=== PATIENT | male | born 1950 | race Caucasian/White ===

== ENCOUNTER 2019-02-25 05:40 | Observation (INO) | payer OTHER, MEDICARE ==
[2019-02-23 16:10] LABS: BASOPHILS % 0.5 % (0.0-1.0); EOSINOPHILS # (AUTO) 0.2 (0.0-0.4); EOSINOPHILS % 1.7 % (0.0-6.0); HEMOGLOBIN 16.2 g/dL (14.0-18.0); LYMPHOCYTES # (AUTO) 2.2 (1.0-3.2); LYMPHOCYTES % 24.6 % (18.0-39.1); MEAN CORPUSCULAR HEMOGLOBIN 31.7 pg (28-32); MEAN CORPUSCULAR HGB CONC 35.2 g/dL (31-35); MONOCYTES # (AUTO) 1.2 (0.2-0.8); MONOCYTES % 13.5 % (4.4-11.3); NEUTROPHILS # (AUTO) 5.2 (2.1-6.9); NEUTROPHILS % 59.2 % (38.7-80.0); PLATELET COUNT 252 x10e3/uL (140-360); RED BLOOD COUNT 5.11 x10e6/uL (4.3-5.7); RED CELL DISTRIBUTION WIDTH 12.4 % (11.7-14.4)
[2019-02-23 16:24] LABS: INR 0.87; PARTIAL THROMBOPLASTIN TIME 31.7 seconds (23.8-35.5); PROTHROMBIN TIME 12.3 seconds (11.9-14.5)
[2019-02-23 16:31] LABS: ANION GAP 16.8 mmol/L (8-16); BLOOD UREA NITROGEN 18 mg/dL (7-26); BUN/CREATININE RATIO 17 (6-25); CALCIUM 9.3 mg/dL (8.4-10.2); CARBON DIOXIDE 24 mmol/L (22-29); CHLORIDE 100 mmol/L (98-107); CREATININE, SERUM 1.07 mg/dL (0.72-1.25); EST GLOMERULAR FILTRATION RATE > 60 ML/MIN (60-); GLUCOSE 96 mg/dL (74-118); POTASSIUM 3.8 mmol/L (3.5-5.1); SODIUM 137 mmol/L (136-145)
--- NOTE | 2019-02-23 17:08 | Diagnostic Imaging Report ---
EXAMINATION: CHEST 2 VIEWS INDICATION: Pre-operative COMPARISON: None FINDINGS: LINES/TUBES:None LUNGS:The lungs are well-inflated. No focal consolidation or pulmonary edema. PLEURA:No pleural effusion or pneumothorax. MEDIASTINUM:The cardiomediastinal silhouette appears normal in size and shape. Postoperative findings of prior CABG. BONES/SOFT TISSUES:No acute osseous injury. Sternotomy wires in place. ABDOMEN:No free air under the diaphragm. IMPRESSION: No focal pneumonia or pulmonary edema. Signed by: Kali Lam MD on 02/23/2019 5:05 PM
[~2019-02-25] VITALS: Ht 188 cm; Wt 112.0 kg
[~2019-02-25 05:40] MED LIST: A REDS 2 PO; ASPIRIN325 MG PO; GABAPENTIN100 MG PO; HCTZ/TRIAMTERENE PO; ONE A DAY MENS PO; SIMVASTATIN40 MG PO; VASOTEC10 MG PO; VITAMIN E400 UNI1 PO
--- OUTSIDE RECORDS SUMMARY | 2019-02-25 05:42 | XMS REPORT ---
Author Author [facility] Address Unknown Phone Unavailable Care Team Providers Care County Administrator Name Role Phone TONY NAVAS Unavailable Unavailable Problems This patient has no known problems. Allergies, Adverse Reactions, Alerts This patient has no known allergies or adverse reactions. Medications This patient has no known medications. Results Test Description Test Time Test Comments Text Results Atomic Results Result Comments CHEST 2 VIEWS 2019-02-23 17:04:[address] [address] Patient Name: DALE MORALES MR #: [id number] : 1950 Age/Sex: 68/M Req #: [id number] Adm Physician: Ordered by: TONY NAVAS MD Report #: [id number] Location: OR Room/Bed: Procedure: [id number] DX/CHEST 2 VIEWS Exam Date: Exam Time: REPORT STATUS: Signed EXAMINATION: CHEST 2 VIEWS INDICATION: Pre-operative COMPARISON: None FINDINGS: LINES/TUBES:None LUNGS:The lungs are well- inflated. No focal consolidation or pulmonary edema. PLEURA:No pleural effusion or pneumothorax. MEDIASTINUM:The cardiomediastinal silhouette appears normal in size and shape. Postoperative findings of prior CABG. BONES/SOFT TISSUES:No acute osseous injury. Sternotomy wires in place. ABDO MEN:No free air under the diaphragm. IMPRESSION: No focal pneumonia or pulmonary edema. Signed by: Slava Lam MD on 02/23/2019 5:05 PM Dictated By: SLAVA LAM MD 04 Transcribed By: VERONICA on 02/23/191704 COPY TO: TONY NAVAS MD
[2019-02-25] MEDS ORDERED: CEFAZOLIN SOD 1 GM/NS 50ML 100 ML IV ONE (06:34)
[2019-02-25] MEDS ORDERED: LIDOCAINE HCL (LTA) 4 ML SOLN ONE (07:08)
[2019-02-25] MEDS ORDERED: ACETAMINOPHEN 1000 MG/100 ML 100 ML IV ONE (07:08)
[2019-02-25] MEDS ORDERED: IBUPROFEN 800MG/ 250ML 250 ML IV ONE (07:08)
[2019-02-25] MEDS ORDERED: THROMBIN FOR SOLN 5,000 UNIT VIAL ONE (07:36)
[2019-02-25] MEDS ORDERED: BUPIVACAINE 0.5%/EPI 30 ML SDV INJ ONE (07:36)
[2019-02-25] MEDS ORDERED: BACITRACIN 50,000 UNIT VIAL ONE (07:36)
[2019-02-25] MEDS ORDERED: CARISOPRODOL 350 MG TAB PO PRN (09:45)
[2019-02-25] MEDS ORDERED: GABAPENTIN 100 MG CAP PO SCH (09:45)
[2019-02-25] MEDS ORDERED: ZOLPIDEM TARTRATE 5 MG TAB PO PRN (09:45)
[2019-02-25] MEDS ORDERED: PROMETHAZINE HCL (IM) 25 MG/ML VIAL IM PRN (09:45)
[2019-02-25] MEDS ORDERED: HYDROMORPHONE 2MG/ML 2 MG/ML ML IV PRN (09:45)
[2019-02-25] MEDS ORDERED: ACETAMINOPHEN 325 MG TAB PO PRN (09:45)
[2019-02-25] MEDS ORDERED: MAGNESIUM/ALUMINUM/SIMETHICONE 30 ML UDC PO PRN (09:45)
[2019-02-25] MEDS ORDERED: MORPHINE SULFATE INJ 4 MG/ML INJ 1ML IM PRN (09:45)
[2019-02-25] MEDS ORDERED: FENTANYL CITRATE/PF 100MCG/2 ML INJ ONE ×2 (10:12→18:50)
[2019-02-25 11:33] VITALS: BP 127/77
[2019-02-25] MEDS ORDERED: GABAPENTIN 100 MG CAP PO PRN (12:00)
[2019-02-25] MEDS: ONDANSETRON HCL INJ 2MG/ML 2ML 2 MG/ML VIAL IV PRN ×2 (12:08→22:05)
[2019-02-25] MEDS: LACTATED RINGER'S 1,000 ML IV SCH ×2 (12:24→17:52)
[2019-02-25 12:30] VITALS: BP 127/77
[2019-02-25 12:36] VITALS: BP 127/77
[2019-02-25] MEDS ORDERED: PNEUMOCOCCAL VACCINE POLYVALENT 23 MCG/0.5 ML VIAL IM SCH (14:00)
[2019-02-25] MEDS: CEFAZOLIN SOD 1 GM/NS 50ML 50 ML IV SCH ×2 (14:19→22:04)
[2019-02-25 15:34] VITALS: BP 131/73
[2019-02-25] MEDS: OXYCODONE/ACETAMINOPHEN 5-325 1 EACH TABLET PO PRN (16:23)
--- NOTE | 2019-02-25 16:38 | Operative Report ---
DATE OF PROCEDURE: 02/25/2019 SURGEON: Jerry Barclay MD PREOPERATIVE DIAGNOSIS: Severe L3-4 spinal stenosis with neurogenic claudication, M48.062. POSTOPERATIVE DIAGNOSIS: Severe L3-4 spinal stenosis with neurogenic claudication, M48.062. PROCEDURES: 1. L3 bilateral decompressive laminectomy and L3-4 bilateral medial facetectomies, 26563. 2. L4 bilateral partial decompressive laminectomy, 60024. ANESTHESIA: General. INDICATIONS: The patient is a 68-year-old man, who presents with severe L3-4 spinal stenosis and was taken to the operating room for bilateral decompressive laminectomy. PROCEDURE IN DETAIL: After induction of general anesthesia, the patient was placed on the operating table in prone position over a Aron frame. The lumbar region was prepped and draped in sterile fashion. A preoperative x-ray was obtained. A small midline incision was created. Lumbar fascia was then opened along the midline and a subperiosteal dissection was carried out to expose the L3 and L4 laminae and spinous processes and the medial aspect of the corresponding facet joints. Two probes were placed, one under the L3 lamina, one under the L4 lamina, and an x-ray was obtained confirming correct localization. Retraction was maintained with Aesculap expandable speculum retractor. Portions of the L3 and L4 spinous processes were resected. Under operating microscope, a high-speed drill equipped with a 5 mm nabeel bur was used to drill the inferior half of the lamina of L3 and superior aspect of lamina of L4 and the medial aspect of the L3-4 facet joints bilaterally. The markedly hypertrophic ligamentum flavum was carefully resected and the dura and L4 traversing nerve roots were fully exposed and decompressed. The epidural veins lateral to the nerve roots were bipolar coagulated and divided with micro scissors to examine the underlying disk. The L3-4 disk was examined on both sides and found to be intact with a chronic disk osteophyte complex that was mildly bulging, but no acute disk herniation. Good decompression had been achieved by virtue of the laminectomy. The wound was irrigated with bacitracin solution. Meticulous hemostasis was secured. The dura was covered with a small layer of Gelfoam. The wound was closed in multiple layers with 0 and 2-0 Vicryl sutures and 3-0 Monocryl sutures in subcuticular fashion. Steri-Strips and dressing were applied. The patient was awakened, extubated, and taken to postanesthesia care unit in stable condition. No intraoperative complications were encountered. Estimated blood loss was 20 mL. Jerry Barclay MD PP/MARTITA /[id number]
[2019-02-25] MEDS: ENALAPRIL MALEATE 10 MG TAB PO SCH (17:09)
[2019-02-25] MEDS ORDERED: ROCURONIUM BROMIDE 10 MG/ML 5ML VIAL ONE (18:50)
[2019-02-25] MEDS ORDERED: MIDAZOLAM HCL 2 MG/2 ML VIAL ONE (18:50)
[2019-02-25] MEDS ORDERED: LIDOCAINE HCL 2% LOCAL INJ 5 ML SDV VIAL INJ ONE (18:50)
[2019-02-25] MEDS ORDERED: SEVOFLURANE INHAL SOLN 250 ML PEN BTL ONE (18:50)
[2019-02-25] MEDS ORDERED: ONDANSETRON HCL INJ 2MG/ML 2ML 2 MG/ML VIAL ONE (18:50)
[2019-02-25] MEDS ORDERED: PROPOFOL IV EMULSION 10 MG/ML 20 ML VIAL ONE (18:50)
[2019-02-25] MEDS ORDERED: DEXAMETHASONE SOD PHOS INJ 4 MG/ML VIAL ONE (18:50)
[2019-02-25] MEDS ORDERED: LIDOCAINE HCL 2% JELLY 5 ML TUBE ONE (18:50)
--- NOTE | 2019-02-25 19:00 | NUR ---
Received report from day nurse. patient is resting comfortably in bed. bed is in lowest position and call ramirez is within reach. will continue to monitor patient.
[2019-02-25 20:00] VITALS: BP 141/72
[2019-02-25] MEDS ORDERED: SIMVASTATIN 40 MG TAB PO SCH (21:00)
[2019-02-26] VITALS: BP 111/57
[2019-02-26] MEDS: OXYCODONE/ACETAMINOPHEN 5-325 1 EACH TABLET PO PRN (00:23)
[2019-02-26] MEDS: LACTATED RINGER'S 1,000 ML IV SCH ×2 (02:12→10:32)
[2019-02-26 04:00] VITALS: BP 95/66
[2019-02-26] MEDS: CEFAZOLIN SOD 1 GM/NS 50ML 50 ML IV SCH (05:47)
[2019-02-26 08:04] VITALS: BP 131/71
[2019-02-26 08:51] VITALS: BP 131/71
[2019-02-26] MEDS ORDERED: VITAMIN E 400 UNIT CAP PO SCH (09:00)
[2019-02-26] MEDS: ENALAPRIL MALEATE 10 MG TAB PO SCH (09:35)
[2019-02-26] MEDS ORDERED: NORCO 7.5-3251 EACH PO (10:10)
== END 2019-02-26 11:30 | disposition home or self-care (01) ==
LOC: OR 05:40 → PACU V 09:33 → IMCU 10:40
PROVIDERS: ADMIT Neurological Surgery; ATTEND Neurological Surgery
DX: M48.062 Spinal stenosis, lumbar region with neurogenic claudication (principal); G47.33 Obstructive sleep apnea (adult) (pediatric); I25.10 Atherosclerotic heart disease of native coronary artery without angina pectoris; Z95.1 Presence of aortocoronary bypass graft; I48.92 Unspecified atrial flutter; Z79.01 Long term (current) use of anticoagulants; I10 Essential (primary) hypertension; E78.5 Hyperlipidemia, unspecified
CPT/HCPCS: 36415; 63047; 63048; 71046; 72020; 80048; 85025; 85610; 85730; 86850; 86900; 88304; 90732; 93005; 96361; G0378 ×2; J0131; J0690 ×2; J1100; J1170; J2001 ×2; J2250; J2270; J2405; J2704; J3010; J7121

== ENCOUNTER 2019-07-10 11:59 | Emergency (ER) | payer OTHER ==
[~2019-07-10] VITALS: Ht 188 cm; Wt 112.0 kg
[~2019-07-10 11:59] MED LIST changes: +NORCO 7.5-3251 EACH PO
[2019-07-10] MEDS: LIDOCAINE HCL 2% LOCAL 20 ML VIAL INJ STA (12:43)
[2019-07-10] MEDS: TETANUS/DIPHTHERIA TOX ADULT 0.5 ML SYR IM STA (12:46)
[2019-07-10] MEDS: NEOMYCIN/POLYMYXIN/BACITRACIN 15 GM TUBE TOP SCH (12:49)
[2019-07-10] MEDS ORDERED: NEOMYCIN/POLYMYX/BACITR OINT 0.9 GM PKT ONE (12:50)
[2019-07-10] MEDS ORDERED: TETANUS/DIPHTHERIA TOX ADULT 0.5 ML SYR ONE (12:50)
== END 2019-07-10 13:15 | disposition home or self-care (01) ==
LOC: FSED 11:59
DX: S61.411A Laceration without foreign body of right hand, initial encounter (principal); W26.8XXA Contact with other sharp object(s), not elsewhere classified, initial encounter; Y93.H2 Activity, gardening and landscaping; Y92.007 Garden or yard of unspecified non-institutional (private) residence as the place of occurrence of the external cause; I10 Essential (primary) hypertension; E78.5 Hyperlipidemia, unspecified; I25.10 Atherosclerotic heart disease of native coronary artery without angina pectoris; Z95.1 Presence of aortocoronary bypass graft
CPT/HCPCS: 12001; 90471; 90714; 99283; J2001

== ENCOUNTER → 2020-12-28 | Day surgery (SDC) | payer OTHER ==
[2020-12-26 16:22] LABS: BASOPHILS % 0.4 % (0.0-1.0); EOSINOPHILS # (AUTO) 0.1 (0.0-0.4); HEMATOCRIT 41.2 % (38.2-49.6); HEMOGLOBIN 13.8 g/dL (14.0-18.0); LYMPHOCYTES # (AUTO) 2.2 (1.0-3.2); LYMPHOCYTES % 28.4 % (18.0-39.1); MEAN CORPUSCULAR HEMOGLOBIN 30.9 pg (28-32); MEAN CORPUSCULAR HGB CONC 33.5 g/dL (31-35); MEAN CORPUSCULAR VOLUME 92.4 fL (81-99); MONOCYTES # (AUTO) 1.1 (0.2-0.8); MONOCYTES % 13.8 % (4.4-11.3); NEUTROPHILS # (AUTO) 4.4 (2.1-6.9); NEUTROPHILS % 56.1 % (38.7-80.0); PLATELET COUNT 241 x10e3/uL (140-360); RED BLOOD COUNT 4.46 x10e6/uL (4.3-5.7); RED CELL DISTRIBUTION WIDTH 12.8 % (11.7-14.4)
[2020-12-26 16:33] LABS: INR 0.95; PROTHROMBIN TIME 12.9 seconds (11.9-14.5)
[2020-12-26 16:47] LABS: ALBUMIN 4.3 g/dL (3.5-5.0); ALBUMIN/GLOBULIN RATIO 1.5 (0.8-2.0); ANION GAP 13.8 mmol/L (8-16); CALCIUM 9.2 mg/dL (8.4-10.2); CHOL/HDL RATIO 3.1 (3.9-4.7); CREATININE, SERUM 0.98 mg/dL (0.72-1.25); POTASSIUM 3.8 mmol/L (3.5-5.1)
[~2020-12-28] VITALS: Ht 188 cm; Wt 115.7 kg
[2020-12-28] VITALS (17 sets, daily range): BP systolic 121–143; BP diastolic 64–90
[~2020-12-28] MED LIST changes: +AMLODIPINE BESYL5 MG PO; +CENTRUM SILVER1 EAC3 PO; +FENTANYL CITRATE/PF 100MCG/2 ML INJ ONE; +GLIMEPIRIDE2 MG PO; +HEPARIN SOD/SOD CHLORIDE 2,000 ML ONE; +IOPAMIDOL 370 MG/ML 200 ML INFUS..BTL INJ ONE; +LIDOCAINE HCL 2% LOCAL 20 ML VIAL ONE; +METOPROLOL SUCC25 MG PO; +MIDAZOLAM HCL 2 MG/2 ML VIAL ONE; +NITROGLYCERIN/D5W 200 MCG/ML 0 ML ONE; +PRESERVISION A1 EAC2 PO; +SODIUM CHLORIDE 0.9% 1000ML 1,000 ML ONE; +TADALAFIL5 MG PO; +TRIAMTERENE-HCTZ1 EA PO; +VITAMIN C1000 MG PO; +VITAMIN D3 PO
== END | disposition home or self-care (01) ==
LOC: CATH LAB 07:10
PROVIDERS: ATTEND Internal Medicine Cardiovascular Disease
DX: I25.118 Atherosclerotic heart disease of native coronary artery with other forms of angina pectoris (principal); I25.10 Atherosclerotic heart disease of native coronary artery without angina pectoris; I10 Essential (primary) hypertension; E78.5 Hyperlipidemia, unspecified; I49.3 Ventricular premature depolarization; I73.9 Peripheral vascular disease, unspecified; Z95.1 Presence of aortocoronary bypass graft; Z01.812 Encounter for preprocedural laboratory examination; Z20.822 Contact with and (suspected) exposure to COVID-19
CPT/HCPCS: 36415; 75605; 76937; 80053; 80061; 85025; 85610; 85730; 93459; C1760; C1769; C1887; J2001; J2250; J3010; J7030; Q9967; U0002; 99152; 99153

== ENCOUNTER → 2021-10-08 | Outpatient (CLI) | payer MEDICARE ==
[~2021-10-08] MED LIST changes: -FENTANYL CITRATE/PF 100MCG/2 ML INJ ONE; -HEPARIN SOD/SOD CHLORIDE 2,000 ML ONE; -IOPAMIDOL 370 MG/ML 200 ML INFUS..BTL INJ ONE; -LIDOCAINE HCL 2% LOCAL 20 ML VIAL ONE; -MIDAZOLAM HCL 2 MG/2 ML VIAL ONE; -NITROGLYCERIN/D5W 200 MCG/ML 0 ML ONE; -SODIUM CHLORIDE 0.9% 1000ML 1,000 ML ONE
[2021-10-08 07:06] LABS: BASOPHILS % 0.6 % (0.0-1.0); EOSINOPHILS # (AUTO) 0.1 (0.0-0.4); EOSINOPHILS % 1.6 % (0.0-6.0); HEMATOCRIT 46.7 % (38.2-49.6); HEMOGLOBIN 15.6 g/dL (14.0-18.0); LYMPHOCYTES # (AUTO) 1.9 (1.0-3.2); LYMPHOCYTES % 31.3 % (18.0-39.1); MEAN CORPUSCULAR HEMOGLOBIN 31.5 pg (28-32); MEAN CORPUSCULAR HGB CONC 33.4 g/dL (31-35); MEAN CORPUSCULAR VOLUME 94.3 fL (81-99); MONOCYTES # (AUTO) 0.8 (0.2-0.8); MONOCYTES % 12.2 % (4.4-11.3); NEUTROPHILS # (AUTO) 3.3 (2.1-6.9); PLATELET COUNT 236 x10e3/uL (140-360); RED BLOOD COUNT 4.95 x10e6/uL (4.3-5.7); RED CELL DISTRIBUTION WIDTH 12.8 % (11.7-14.4)
[2021-10-08 07:33] LABS: ALBUMIN 4.1 g/dL (3.5-5.0); ALBUMIN/GLOBULIN RATIO 1.4 (0.8-2.0); ANION GAP 15.2 mmol/L (8-16); CREATININE, SERUM 1.1 mg/dL (0.72-1.25); POTASSIUM 4.2 mmol/L (3.5-5.1)
== END ==
LOC: RAD 06:37
PROVIDERS: ATTEND Orthopaedic Surgery Sports Medicine
DX: M17.12 Unilateral primary osteoarthritis, left knee (principal)
CPT/HCPCS: 36415; 80053; 85025; 87081

== ENCOUNTER 2024-09-02 17:41 | Emergency (ER) | payer MEDICARE ==
[~2024-09-02] VITALS: Ht 188 cm; Wt 115.7 kg
[2024-09-02 18:10] VITALS: TEMP 98.4
[2024-09-02 18:43] LABS: BASOPHILS % 0.4 % (0.0-1.0); EOSINOPHILS # (AUTO) 0.1 (0.0-0.4); EOSINOPHILS % 1.1 % (0.0-6.0); HEMATOCRIT 39.9 % (38.2-49.6); LYMPHOCYTES # (AUTO) 1.7 (1.0-3.2); LYMPHOCYTES % 23.2 % (18.0-39.1); MEAN CORPUSCULAR HGB CONC 35.1 g/dL (31-35); MEAN CORPUSCULAR VOLUME 91.3 fL (81-99); MONOCYTES # (AUTO) 1.1 (0.2-0.8); MONOCYTES % 15.9 % (4.4-11.3); NEUTROPHILS # (AUTO) 4.2 (2.1-6.9); NEUTROPHILS % 59.1 % (38.7-80.0); PLATELET COUNT 236 x10e3/uL (140-360); RED BLOOD COUNT 4.37 x10e6/uL (4.3-5.7); RED CELL DISTRIBUTION WIDTH 12.7 % (11.7-14.4); WHITE BLOOD COUNT 7.15 x10e3/uL (4.8-10.8)
[2024-09-02] MEDS ORDERED: SODIUM CHLORIDE FLUSH 10 ML SYR IV PRN (18:45)
[2024-09-02 18:54] LABS: ALBUMIN 4.1 g/dL (3.5-5.0); ALBUMIN/GLOBULIN RATIO 1.4 (0.8-2.0); ANION GAP 16.8 mmol/L (8-16); BILIRUBIN,TOTAL 0.4 mg/dL (0.2-1.2); CREATININE, SERUM 1.36 mg/dL (0.72-1.25); POTASSIUM 3.8 mmol/L (3.5-5.1); TOTAL PROTEIN 7.1 g/dL (6.5-8.1)
[2024-09-02 19:00] LABS: TROPONIN I 0.01 ng/mL (0-0.300)
[2024-09-02] MEDS: ASPIRIN 81 MG CHEW TAB PO ONE (21:02)
[2024-09-02] MEDS: SODIUM CHLORIDE 0.9% 500ML 500 ML IV ONE (21:05)
[2024-09-02 21:06] VITALS: PULSE 75; RESP 18
[2024-09-02 22:49] VITALS: BP 145/90; PULSE 75; RESP 17; TEMP 98; O2SAT 95
== END 2024-09-02 22:50 | disposition home or self-care (01) ==
LOC: ER 18:31
DX: R07.89 Other chest pain (principal); R61 Generalized hyperhidrosis; E78.5 Hyperlipidemia, unspecified; I25.10 Atherosclerotic heart disease of native coronary artery without angina pectoris; Z95.1 Presence of aortocoronary bypass graft
CPT/HCPCS: 36415; 71045; 80053; 84484; 85025; 93005; 94760; 99284; J7040

== ENCOUNTER → 2024-11-26 | Day surgery (SDC) | payer MEDICARE ==
[2024-11-23 11:43] LABS: BASOPHILS % 0.6 % (0.0-1.0); EOSINOPHILS % 1.3 % (0.0-6.0); LYMPHOCYTES % 26.4 % (18.0-39.1); MONOCYTES % 12.2 % (4.4-11.3); NEUTROPHILS % 59.1 % (38.7-80.0); RED CELL DISTRIBUTION WIDTH 12.6 % (11.7-14.4)
[~2024-11-26] MED LIST changes: +FENTANYL CITRATE/PF 100MCG/2 ML INJ ONE; +FISH OIL 1,0001 EAC7; +HYOSCYAMINE SULFATE 0.5 MG/ML INJ ONE; +LATANOPROST2.5 ML OP; +LIDOCAINE HCL 2% LOCAL INJ 5 ML SDV VIAL INJ ONE; +LIPITOR20 MG PO; +MIDAZOLAM HCL 2 MG/2 ML VIAL ONE; +ONDANSETRON HCL INJ 2MG/ML 2ML 2 MG/ML VIAL ONE; +PROPOFOL IV EMULSION 50 ML IV ONE; +XARELTO20 MG PO; +ZINC
[2024-11-26] MEDS: LACTATED RINGER'S 1,000 ML ONE (07:17)
[2024-11-26 10:11] VITALS: TEMP 97.7
[2024-11-26 10:40] VITALS: BP 117/62; PULSE 65; RESP 15; O2SAT 100
== END | disposition home or self-care (01) ==
LOC: OR 06:28
PROVIDERS: ATTEND Internal Medicine Gastroenterology
DX: Z12.11 Encounter for screening for malignant neoplasm of colon (principal); K63.5 Polyp of colon; K57.30 Diverticulosis of large intestine without perforation or abscess without bleeding; K64.8 Other hemorrhoids; I10 Essential (primary) hypertension; I25.10 Atherosclerotic heart disease of native coronary artery without angina pectoris; I48.0 Paroxysmal atrial fibrillation; I49.5 Sick sinus syndrome; E11.40 Type 2 diabetes mellitus with diabetic neuropathy, unspecified; E78.00 Pure hypercholesterolemia, unspecified; Q81.9 Epidermolysis bullosa, unspecified; I73.9 Peripheral vascular disease, unspecified; Z79.01 Long term (current) use of anticoagulants; Z79.84 Long term (current) use of oral hypoglycemic drugs; Z79.82 Long term (current) use of aspirin; Z79.899 Other long term (current) drug therapy; Z68.34 Body mass index [BMI] 34.0-34.9, adult; Z95.1 Presence of aortocoronary bypass graft; Z01.810 Encounter for preprocedural cardiovascular examination; Z01.812 Encounter for preprocedural laboratory examination
CPT/HCPCS: 36415 ×2; 45381; 45385; 82948; 85025; 93005; J1980; J2003; J2250; J2405; J2704; J3010; J7121; 45378

== ENCOUNTER → 2025-02-21 | Outpatient (REF) | payer MEDICARE ==
[~2025-02-21] MED LIST changes: -FENTANYL CITRATE/PF 100MCG/2 ML INJ ONE; -HYOSCYAMINE SULFATE 0.5 MG/ML INJ ONE; -LIDOCAINE HCL 2% LOCAL INJ 5 ML SDV VIAL INJ ONE; -MIDAZOLAM HCL 2 MG/2 ML VIAL ONE; -ONDANSETRON HCL INJ 2MG/ML 2ML 2 MG/ML VIAL ONE; -PROPOFOL IV EMULSION 50 ML IV ONE
== END ==
LOC: MRI 14:52
PROVIDERS: ATTEND Family Medicine
DX: M54.17 Radiculopathy, lumbosacral region (principal)
CPT/HCPCS: 72148